=== PATIENT | male | born 1985 | race Caucasian/White ===

== ENCOUNTER 2017-02-20 20:02 | Emergency (ER) | payer OTHER, MEDICAID ==
[2017-02-20 20:20] VITALS: RESP 18; TEMP 98.1
--- NOTE | 2017-02-20 20:26 | EDPHY ---
H & P Stated Complaint: swelling/bruising r ring finger, closed in door on tuesday Time Seen by Provider: 02/20/17 20:07 HPI/ROS: CHIEF COMPLAINT: Finger pain HISTORY OF PRESENT ILLNESS: This is a 31-year-old male with developmental delay presents with pain involving his right ring finger. He reportedly had a crush injury to this finger 2 days ago--his finger was closed in a door. It has become progressively more swollen and bruised. He has not had any pain medicine today but took an ibuprofen last night. No other injuries. REVIEW OF SYSTEMS: No recent cough or cold. No vomiting. No abdominal pain. Past medical history: Developmental delay Social history: He is here with his family. No tobacco or alcohol use. General Appearance: Alert. Vital signs reviewed. Heart rate 122 at triage. A focused exam was performed Respiratory: Lungs are clear to auscultation; no wheezes, rales, or rhonchi. Cardiovascular: Regular rate and rhythm; no murmur, rub, or gallop. Not tachycardic at time of my exam. Skin: Warm and dry, no rashes on exposed skin, normal color. Skin is dry. Extremities: Swelling and bruising of the right 4th digit, distal to PIP. Tender to palpation but no specific flexor tendon tenderness, no pain with passive extension of the digit. There is erythema and warmth between the PIP in the DI P. No purulence or fluctuance, no paronychia. Pulse: 2+ right radial pulse. Neurological: Alert. Moving all four extremities easily and equally. Psychiatric: Normal affect. - Personal History Current Tetanus/Diphtheria Vaccine: Unsure Current Tetanus Diphtheria and Acellular Pertussis (TDAP): Unsure - Medical/Surgical History Hx Asthma: No Hx Chronic Respiratory Disease: No Hx Diabetes: No Hx Cardiac Disease: No Hx Renal Disease: No Hx Cirrhosis: No Hx Alcoholism: No Hx HIV/AIDS: No Hx Splenectomy or Spleen Trauma: No Other PMH: develomental Delay. Gerd. SZ - Social History Smoking Status: Never smoked Constitutional: Initial Vital Signs Temperature (C) 36.7 C 02/20/17 20:05 Heart Rate 122 H 02/20/17 20:05 Respiratory Rate 18 02/20/17 20:05 Blood Pressure 126/88 H 02/20/17 20:05 O2 Sat (%) 96 02/20/17 20:05 O2 Delivery Mode Room Air Allergies/Adverse Reactions: No Known Allergies Allergy (Unverified 09/26/09 16:25) Home Medications: Medication Instructions Recorded TRAZODONE HCL 09/26/09 Trileptal 06/21/10 Cephalexin [Keflex] 500 mg PO TID 10 Days cap 07/21/14 Clonidine 07/21/14 Loxapine 07/21/14 Ranitidine HCl 07/21/14 Tylenol 07/21/14 Cephalexin [Keflex] 500 mg PO TID #15 cap 02/20/17 Pantoprazole Sodium 02/20/17 Sertraline HCl [Zoloft 50mg (*)] 02/20/17 THYROID 02/20/17 TRIHEXYPHENIDYL HCL 02/20/17 Medical Decision Making ED Course/Re-evaluation: X-ray of right 4th finger reviewed. No fracture or dislocation. Based upon his history and exam I believe that he has a crush injury. I am recommending symptomatic treatment. Do not find evidence of tenosynovitis, abscess, or paronychia. No neurovascular compromise. I do not think that there is an infection, there is certainly nothing to drain. There is some erythema and warmth though. His family tells me that he gets frequent skin lesions for which he takes Keflex. He was given a dose of Keflex today. I am advising them to continue with this medication, to ice and elevate, and to seek medical attention if he is worsening in any way. Departure - Departure Disposition: Home, Routine, Self-Care Clinical Impression: Crushing injury of finger of right hand Condition: Good Instructions: RICE Therapy (ED), Crush Injury (ED) Additional Instructions: Try to elevate the right hand as much as possible. Keep ice on the finger for 20 minutes at a time. Try to do this at least four times daily. Adult Pain & Fever Control: We recommend Acetaminophen (Tylenol) and Ibuprofen (Motrin,Advil) for pain and fever control. When fever is high or pain severe, both drugs can be used at the same time, but at different intervals. Please note the time differences. Your dose is: Acetaminophen 650mg every 4 to 6 hours Ibuprofen 400mg every 6 hours with food OR Follow up with his doctor if not improving or getting worse. Referrals: Kyrie Herrera, DO [Primary Care Provider] - As per Instructions Prescriptions: Cephalexin [Keflex] 500 mg PO TID #15 cap
[2017-02-20 21:04] VITALS: BP 124/86; PULSE 121; O2SAT 95
== END 2017-02-20 21:01 | disposition home or self-care (01) ==
LOC: CED 20:02
DX: S67.194A Crushing injury of right ring finger, initial encounter (principal); W23.0XXA Caught, crushed, jammed, or pinched between moving objects, initial encounter
CPT/HCPCS: 73140; 99283; A4565